=== PATIENT | female | born 1985 ===

== ENCOUNTER 2017-07-29 10:12 | Emergency (ER) | payer OTHER ==
--- NOTE | 2017-07-29 10:57 | C.PDOC ---
History Of Present Illness 32 yo female c/o fever, body aches, sore throat and chest pain since yesterday. (+) pain with swallowing . Chest pain is midsternal, described as sharp and lasting a few minutes. No difficulty breathing or swallowing. No neck pain, headache, visual changes, congestion, cough, or abdominal pain. Time Seen by Provider: 07/29/17 10:23 Chief Complaint (Nursing): Flu-like Symptoms History Per: Patient History/Exam Limitations: no limitations Onset/Duration Of Symptoms: Hrs Current Symptoms Are (Timing): Still Present Location Of Pain: Throat, Diffuse Myalgias Associated Symptoms: Fever, Sore Throat Past Medical History Vital Signs: Last Vital Signs Temp 98.8 F 07/29/17 13:19 Pulse 91 H 07/29/17 13:19 Resp 20 07/29/17 13:19 BP 101/63 07/29/17 13:19 Pulse Ox 95 07/29/17 13:19 - Medical History PMH: No Chronic Diseases Family History: States: Unknown Family Hx - Social History Hx Alcohol Use: Yes Hx Substance Use: No - Immunization History Hx Tetanus Toxoid Vaccination: No Hx Influenza Vaccination: No Hx Pneumococcal Vaccination: No Review Of Systems Except As Marked, All Systems Reviewed And Found Negative. Constitutional: Positive for: Fever ENT: Positive for: Throat Pain Cardiovascular: Positive for: Chest Pain Physical Exam - Physical Exam Appears: Well, Non-toxic, No Acute Distress Skin: Normal Color, Warm, Dry Head: Atraumatic, Normacephalic Eye(s): bilateral: Normal Inspection, PERRL, EOMI Ear(s): Bilateral: Normal Nose: Normal Oral Mucosa: Moist Throat: Erythema, No Exudate, No Drooling Neck: Normal, Normal ROM, Supple Lymphatic: Adenopathy (left sided submandibular) Chest: Symmetrical Cardiovascular: Rhythm Regular Respiratory: Normal Breath Sounds Gastrointestinal/Abdominal: Normal Exam, Soft, No Tenderness Back: Normal Inspection Extremity: Normal ROM Neurological/Psych: Oriented x3, Normal Speech Gait: Steady ED Course And Treatment - Laboratory Results Result Diagrams: 07/29/17 11:27 07/29/17 11:27 ECG: Interpreted By Me, Viewed By Me ECG Rhythm: Sinus Tachycardia ECG Interpretation: Normal Rate From EC (bpm) O2 Sat by Pulse Oximetry: 99 (room air) Pulse Ox Interpretation: Normal - Radiology CXR: Interpreted by Me, Viewed By Me, Read By Radiologist CXR Interpretation: Yes: No Acute Disease Progress Note: On re-evaluaiton, pt feels much better. Tolerating po. No headache, neck pain or chest pain. No sob. Pulse ox WNL. Discussed with pt signs and symptoms of concern and isntructed to return to ER if symptoms arise. Otherwise instructed to follow up with her PMD in 1-2 days. Case dsicussed with Dr Harvey who reviewed labs and agreed upon plan and treatment. Disposition - Disposition Disposition: HOME/ ROUTINE Disposition Time: 12:29 Condition: STABLE Additional Instructions: Follow up with primary medical doctor in 1-3 days without fail for further evaluation. Take medications as prescribed. Return to the emergency department at any time if symptoms persist or worsen. Prescriptions: Amoxicillin 875 mg PO BID #14 tablet Ibuprofen [Motrin] 600 mg PO Q6 PRN #20 tab PRN Reason: Pain, Mild (1-3) Instructions: Pharyngitis (ED) Forms: [facility] [employer] [facility] (Irish) - Clinical Impression Clinical Impression: Pharyngitis, Influenza-like illness, Chest pain
[2017-07-29] MEDS ORDERED: Sodium Chloride 0.9% 1,000 ML IV ONE (11:01)
[2017-07-29] MEDS ORDERED: Alum-Mag Hydrox-Simethicone Susp (30 mL) PO STA (11:05)
[2017-07-29] MEDS ORDERED: Sodium Chloride 0.9% 1,000 ML ONE (11:21)
[2017-07-29] MEDS ORDERED: Alum-Mag Hydrox-Simethicone Susp (30 mL) ONE (11:21)
[2017-07-29 11:30] LABS: BASO # 0.1 K/uL (0.0-0.2); BASO % 0.5 % (0.0-2.0); EOS % 0.1 % (0.0-4.0); HEMOGLOBIN 13.4 g/dL (11.0-16.0); LYMPH # 0.7 K/uL (1.0-4.3); LYMPH % 6.9 % (20.0-40.0); MEAN CELL VOLUME 86.8 fL (81.0-99.0); MEAN CORPUSCULAR HEMOGLOBIN 30.5 pg (27.0-31.0); MEAN CORPUSCULAR HGB CONC 35.2 g/dL (33.0-37.0); MEAN PLATELET VOLUME 8.9 fL (7.2-11.7); MONO # 0.5 K/uL (0.0-0.8); MONO % 5.1 % (0.0-10.0); NEUT # 8.9 K/uL (1.8-7.0); NEUT % 87.4 % (50.0-75.0); PLATELET COUNT 206 K/uL (130-400); RED CELL DISTRIBUTION WIDTH 13.3 % (11.5-14.5); WHITE BLOOD COUNT 10.2 K/uL (4.8-10.8)
[2017-07-29 11:50] LABS: ALBUMIN 4.3 g/dL (3.5-5.0); BLOOD UREA NITROGEN 7 mg/dL (7-17); CALCIUM 8.8 mg/dl (8.6-10.4); GFR AFRICAN-AMERICAN > 60; GFR NON-AFRICAN AMERICAN > 60
[2017-07-29 11:51] LABS: ALB/GLOB RATIO 1.5 (1.0-2.1); ALT/SGPT 27 U/L (9-52); AST/SGOT 19 U/L (14-36); LIPASE 73 U/L (23-300)
[2017-07-29 11:57] LABS: ANISOCYTOSIS SLIGHT; LARGE PLATELETS PRESENT; LYMPHOCYTE 6 % (20-40); MONOCYTE 5 % (0-10); NEUTROPHIL 88 % (50-75); PLATELET ESTIMATE NORMAL (NORMAL); REACTIVE LYMPHOCYTES 1 % (0-0); TOTAL CELLS COUNTED 100
[2017-07-29 11:58] LABS: GIANT PLATELETS PRESENT
[2017-07-29 12:00] LABS: HCG,QUALITATIVE URINE NEGATIVE (NEGATIVE)
[2017-07-29 12:02] LABS: CK-MB 0.41 ng/mL (0.0-3.38)
[2017-07-29 12:20] LABS: SQUAMOUS EPITHIAL 6 /hpf (0-5); URINE AMORPHOUS SEDIMENT RARE /ul (<OCC); URINE BACTERIA OCC (<OCC); URINE BILIRUBIN NEGATIVE (NEGATIVE); URINE BLOOD 1+ (NEGATIVE); URINE CLARITY Hazy (Clear); URINE COLOR Yellow (YELLOW); URINE GLUCOSE (UA) NORMAL (Normal); URINE LEUKOCYTE ESTERASE 2+ Leu/uL (Negative); URINE NITRATE NEGATIVE (NEGATIVE); URINE PROTEIN NEGATIVE (NEGATIVE); URINE UROBILINOGEN NORMAL mg/dL (0.2-1.0)
--- NOTE | 2017-07-29 12:43 | RAD ---
HISTORY: SOB COMPARISON: No prior. TECHNIQUE: Chest PA and lateral FINDINGS: LUNGS: No active pulmonary disease. PLEURA: No significant pleural effusion identified. No pneumothorax apparent. CARDIOVASCULAR: Normal. OSSEOUS STRUCTURES: No significant abnormalities. VISUALIZED UPPER ABDOMEN: Normal. OTHER FINDINGS: None. IMPRESSION: No active disease.
[2017-07-29 13:20] VITALS: BP 101/63; PULSE 91; RESP 20; TEMP 98.8
[2017-07-29 14:35] VITALS: O2SAT 99
--- NOTE | 2017-08-01 12:40 | CARD ---
APPROVED REPORT EKG Measurement Heart [id number] MD [id number] <Conclusion> Sinus tachycardia Otherwise normal ECG
== END 2017-07-29 13:22 | disposition home or self-care (01) ==
LOC: C.ER 10:12
DX: J11.1 Influenza due to unidentified influenza virus with other respiratory manifestations (principal); R07.9 Chest pain, unspecified
CPT/HCPCS: 71020; 80053; 81001; 82550; 82553; 83690; 84484; 84703; 85025; 87804; 96360; 99283; J7040